=== PATIENT | male | born 1965 | race American Indian/Alaskan Native ===

== ENCOUNTER 2018-11-23 00:55 | Emergency (ER) | payer SELFPAY ==
[2018-11-23 02:32] LABS: Hematocrit 39.1 % (35.5-45.6); Hemoglobin 13.1 gm/dl (11.8-15.2); Mean Corpuscular HGB Conc 33 % (32-34); Mean Corpuscular Volume 86 fl (84-94); Platelet Count 204 K/mm3 (140-440); Red Blood Count 4.57 M/mm3 (3.65-5.03); Red Cell Distribution Width 13.7 % (13.2-15.2)
[2018-11-23 02:52] LABS: Calcium 8.7 mg/dL (8.4-10.2)
[2018-11-23] MEDS ORDERED: NACL 0.9% 1000 ML 1,000 ML IV ONE (03:57)
[2018-11-23] MEDS ORDERED: ZOSYN/NS 4.5GM/100ML 4.5 GM/100 ML VIAL IV ONE (03:57)
[2018-11-23] MEDS ORDERED: ZOFRAN IV ONE (03:57)
[2018-11-23] MEDS ORDERED: MORPHINE IV ONE ×2 (03:57→05:52)
--- NOTE | 2018-11-23 04:04 | Emergency Department Report ---
ED ENT HPI - General Chief complaint: Dental/Oral Stated complaint: FACIAL SWELLING Time Seen by Provider: 11/23/18 03:48 Source: patient Mode of arrival: Ambulatory Limitations: No Limitations - History of Present Illness Initial comments: 53-year-old male presents to ED with left upper and lower molar pain and facial swelling. Patient states pain and swelling began 2 days ago. Denies fever. Patient reports he has a cracked tooth in the left lower molar. States he has an appointment in 3 days at the dentist, however when he woke up this morning the swelling had increased so he decided to come to the emergency room. Patient denies any other medical problems. Patient denies difficulty swallowing or breathing. MD complaint: tooth pain -: days(s) (2) Location: tooth # (30 and 2) Severity: severe Quality: aching Consistency: constant Improves with: none Worsens with: eating Context- Dental: poor dental care Associated Symptoms: toothache. denies: fever - Related Data Allergies Allergy/AdvReac Type Severity Reaction Status Date / Time No Known Allergies Allergy Verified 11/23/18 01:07 ED Dental HPI - General Chief complaint: Dental/Oral Stated complaint: FACIAL SWELLING Time Seen by Provider: 11/23/18 03:48 Source: patient Mode of arrival: Ambulatory Limitations: No Limitations - Related Data Allergies Allergy/AdvReac Type Severity Reaction Status Date / Time No Known Allergies Allergy Verified 11/23/18 01:07 ED Review of Systems ROS: Stated complaint: FACIAL SWELLING Other details as noted in HPI Comment: All other systems reviewed and negative Constitutional: denies: chills, fever ENT: dental pain Respiratory: denies: shortness of breath Gastrointestinal: denies: nausea, vomiting ED Past Medical Hx - Past Medical History Previous Medical History?: No - Surgical History Past Surgical History?: Yes Additional Surgical History: back - Social History Smoking Status: Current Every Day Smoker Substance Use Type: None ED Physical Exam - General Limitations: No Limitations General appearance: alert, in no apparent distress - Head Head exam: Present: atraumatic, normocephalic - Eye Eye exam: Present: normal appearance, PERRL, EOMI - ENT ENT exam: Present: other (trismus present; severe swelling and induration to the left face; dental caries present; tooth #30 appears to be fractured and decayed, tenderness to percussion; tooth #2 appears decayed, tenderness to percussion present; no tongue swelling or elevation of tongue present) - Neck Neck exam: Present: normal inspection, other (mild induration to left submandibular aream) - Respiratory Respiratory exam: Present: normal lung sounds bilaterally. Absent: respiratory distress - Cardiovascular Cardiovascular Exam: Present: normal rhythm, tachycardia - GI/Abdominal GI/Abdominal exam: Absent: distended - Extremities Exam Extremities exam: Present: normal inspection - Neurological Exam Neurological exam: Present: alert, oriented X3 - Psychiatric Psychiatric exam: Present: normal affect, normal mood - Skin Skin exam: Present: warm, dry, intact, normal color ED Course Vital Signs 11/23/18 11/23/18 11/23/18 01:08 03:45 04:34 Temperature 98.5 F 98.4 F Pulse Rate 130 H 112 H Respiratory 18 22 18 Rate Blood Pressure 136/75 Blood Pressure 137/78 [Left] O2 Sat by Pulse 96 99 Oximetry 11/23/18 11/23/18 05:04 06:00 Temperature Pulse Rate Respiratory 16 18 Rate Blood Pressure Blood Pressure [Left] O2 Sat by Pulse Oximetry - Consultations Consultation #1: 11/23/18 06:24 [facility] transfer line contacted. Spoke w/ STARLA Villegas on-call. Accepts transfer to ED to evaluate for possible Nate's Angina ED Medical Decision Making - Lab Data Result diagrams: 11/23/18 02:11 11/23/18 02:11 - Radiology Data Radiology results: report reviewed, image reviewed - Medical Decision Making 53 yo M w/ left significant left facial swelling and insuration somewhat extending down into left submandibular area. Trimsus is present. No submental induration or swelling. Tongue is normal, not elevated or protruding. No airway compromise. Pt afebrile, but tachycardic into the 110s w/ elevated WBC of 25. Lactic acid normal. Blood cultures drawn, zosyn, and IV fluids given. Spoke w/ STARLA at [facility]. Accepts transfer to [facility] ED for evaluation of possible Nate's angina. Awaiting transport. - Differential Diagnosis Nate's Angina, facial cellulitis, abscess Critical Care Time: Yes Critical care time in (mins) excluding proc time.: 35 Critical care attestation.: If time is entered above; I have spent that time in minutes in the direct care of this critically ill patient, excluding procedure time. Critical Care Time: 35 minutes ED Disposition Clinical Impression: Nate's angina Disposition: [id number]/TX-[id number] ANOTHER TYPE HLTHCARE Is pt being admited?: No Condition: Stable Referrals: PRIMARY CARE, [Primary Care Provider] - 3-5 Days Time of Disposition: 06:26
[2018-11-23 04:11] LABS: Total Cells Counted 100
[2018-11-23 04:12] LABS: Band Neutrophils # (Manual) 0.8 K/mm3; Eosinophils % (Manual) 0 % (0.0-4.3)
[2018-11-23 04:15] LABS: Macrocytosis Few; Ovalocytes Few
[2018-11-23 04:16] LABS: Platelet Estimate Consistent w Auto
[2018-11-23] MEDS ORDERED: MORPHINE ONE (05:54)
--- NOTE | 2018-11-23 06:09 | Cat Scan Report ---
Contrast-enhanced CT scan of the neck: INDICATION: Facial swelling on the left side for the last 2 days; "dental pain" TECHNIQUE: Contiguous thin cut axial images obtained through the neck following IV Omnipaque 300/100 mL. Sagitta l and coronal reconstructions performed by the technologist. All CT scans at this location are perfor med using CT dose reduction for ALARA by means of automated exposure control. COMPARISON: None available. FINDINGS: Soft tissue swelling with emphysematous changes are seen in the left cheek centered around the anterior margin of the left masseter muscle. Emphysematous changes extending into the left bucca l space. I do not see an acute abscess. Platysma is thickened on the left side. Subcutaneous strandin g is seen. Reactive lymph nodes are seen bilaterally more on the left level 1, level 2 and level 3. Dental caries with root abscesses seen on the left side around #15 and # 18. Tooth #18 appears to be broken down. Dental caries also seen around tooth #3 on the right side. The airway is not compromised. MUCOSAL SPACE: Nasopharynx, oropharynx and vallecula, oral cavity , hypopharynx, and larynx are gross ly normal. LYMPH NODES: Reactive lymph nodes are seen in level 1, level 2 and level 3 SALIVARY GLANDS: Parotid, submandibular, and visualized sublingual glands are within normal limits. L eft Stensen's duct is surrounded by inflammatory changes. THYROID GLAND: Unremarkable. PARANASAL SINUSES: Small amount of fluid accumulation is seen in the right maxillary sinus. SPINE: Bridging osteophytes are seen anteriorly from C2 up to C7. Ossification of the posterior longi tudinal ligament is seen at C5 level. VASCULAR STRUCTURES: Vascular structures are grossly normal in appearance. IMPRESSION: Soft tissue swelling in the left cheek around the left masseter muscle extending into left buccal sp dayana and mastication space with emphysematous changes This appears to be odontogenic; dental caries and rooot abscess around tooth15 and 18. Signer Name: Sahil Swanson MD Signed: 11/23/2018 6:05 AM Workstation Name: [id number]
[2018-11-23 09:37] VITALS: BP 111/61
== END 2018-11-23 09:40 | disposition other institution (70) ==
LOC: ED 00:55
DX: K12.2 Cellulitis and abscess of mouth (principal); F17.200 Nicotine dependence, unspecified, uncomplicated; Z98.890 Other specified postprocedural states
CPT/HCPCS: 36415; 70491; 80048; 82140; 85007; 85025; 87040; 96365; 96375; 96376; 99291; J2270; J2405; J2543; J7030; Q9967